=== PATIENT | male | born 1985 | race Caucasian/White ===

== ENCOUNTER 2018-01-02 08:09 | Emergency (ER) | payer OTHER, SELFPAY ==
[2018-01-02 08:20] VITALS: BP 154/69; PULSE 90; RESP 16; TEMP 36.8; O2SAT 98
--- NOTE | 2018-01-02 08:27 | DI.RAD.S_ITS ---
PROCEDURE: XR KNEE LT 3V INDICATIONS: L knee injury TECHNIQUE: 3 views of the knee were acquired. COMPARISON: None. FINDINGS: Bones: No fractures or dislocations. No suspicious bony lesions. Soft tissues: No joint effusion. No suspicious soft tissue calcifications. IMPRESSION: No acute fracture. No osseous lesion. If clinical suspicion and/or symptoms persist, further assessment with repeat plainfilms, or advanced imaging (e.g., CT, MRI, or bone scan) may be helpful for further assessment. Dictated by: Charlotte Trevino M.D. on 01/02/2018 at 8:51 Approved by: Charlotte Trevino M.D. on 01/02/2018 at 8:51
--- NOTE | 2018-01-02 08:38 | ED_ITS ---
HPI - Extremity Injury (Lower) General Chief Complaint: Extremity Injury, Lower Stated Complaint: CANT PUT PRESSURE ON LEFT KNEE Time Seen by Provider: 01/02/18 08:14 Source: patient Mode of arrival: ambulatory Limitations: no limitations History of Present Illness HPI Narrative: 32-year-old otherwise healthy male presents with ongoing left knee pain for quite some time. He denies any specific injury but states that with certain types of workout he developed sharp and stabbing pain in his left lateral knee that makes it hard to ambulate. He states on occasion he has clicking and popping. He denies any specific or direct trauma. She denies any effusions, redness, warmth or fever. His pain is worse with ambulation and improves with rest MD complaint: knee injury Onset (ago): year(s) Place: home Severity: mild Relieving factors: rest Exacerbating factors: weight bearing and movement Associated symptoms: snap/pop sensation Other symptoms: none Related Data Home Medications Medication Instructions Recorded Confirmed No Known Home Medications 01/02/18 01/02/18 Allergies Allergy/AdvReac Type Severity Reaction Status Date / Time No Known Drug Allergies Allergy Verified 01/02/18 08:24 Review of Systems Review of Systems All systems reviewed & are unremarkable except as noted in HPI and below Constitutional Denies chills, Denies fever(s), Denies lethargy and Denies weakness Eyes Denies change in vision, Denies eye discharge, Denies irritation and Denies loss of vision ENT Ears, Nose, Mouth, and Throat: Denies change in voice, Denies neck pain and Denies sore throat Cardiovascular Denies chest pain, Denies irregular heart rhythm, Denies lightheadedness, Denies palpitations, Denies dyspnea, Denies dyspnea on exertion and Denies orthopnea Respiratory Denies cough, Denies dyspnea, Denies dyspnea on exertion and Denies wheezing Gastrointestinal Gastrointestinal: Denies abdominal pain, Denies change in bowel habits, Denies diarrhea, Denies nausea and Denies vomiting Genitourinary Denies hematuria, Denies flank pain, Denies urinary incontinence and Denies urinary urgency Musculoskeletal Reports limited range of motion and Denies neck pain Integumentary/Breasts Denies pruritus, Denies erythema, Denies rash and Denies wounds Neurologic Denies confusion, Denies loss of vision and Denies weakness Psychiatric Denies anxiety, Denies confusion, Denies depression, Denies homicidal ideation and Denies suicidal ideation Endocrine Denies palpitations Hematologic/Lymphatic Denies easy bruising Allergic/Immunologic Denies wheezing PFSH Surgical History H/O hernia repair (Acute) Social History Smoking Status: Never smoker Exam Narrative Exam Narrative: GEN: AOx3 and in mild distress EYES: Pupils are equal, round, and reactive to light and accommodation. Extraoccular muscles are intact bilaterally. There is no subconjunctival hemorrhage or exudate. CHEST: Lungs are clear to auscultation bilaterally and free of wheezes, rales, or rhonchi. Heart rate is regular rhythm, there are no murmurs, clicks, rubs, or gallops. There is no chest wall tenderness. ABD: Abdomen is soft and nontender. There is no guarding or rebound. Bowel sounds are normal in all 4 quadrants. There is no mass or organomegaly. EXT: No joint line tenderness, effusion, erythema, warmth. Mild lateral pain with Rich's test on left knee. No ligamentous instability SKIN: Warm, pink, and dry. No erythema or rash Initial Vital Signs Initial Vital Signs: Vital Signs Temperature 98.3 F 01/02/18 08:20 Pulse Rate 90 01/02/18 08:20 Respiratory Rate 16 01/02/18 08:20 Blood Pressure 154/69 H 01/02/18 08:20 Pulse Oximetry 98 01/02/18 08:20 Course Orders Ordered: ED Orders 01/02/18 08:27 XR knee LT 3V Stat Vital Signs - 8 hr 01/02/18 08:20 Temperature 98.3 F Pulse Rate 90 Respiratory Rate 16 Blood Pressure 154/69 H Pulse Oximetry 98 MDM - Extremity Injury (Lower) Differential Diagnosis Likely ankle sprain and strain, acute internal derangement of knee and fracture of femur Medical Records Attestation: I reviewed the patient's medical records. Lab Data Attestation: I reviewed the patient's lab results. Imaging Data Knee Xray: My impression: PROCEDURE: XR KNEE LT 3V INDICATIONS: L knee injury TECHNIQUE: 3 views of the knee were acquired. COMPARISON: None. FINDINGS: Bones: No fractures or dislocations. No suspicious bony lesions. Soft tissues: No joint effusion. No suspicious soft tissue calcifications. IMPRESSION: No acute fracture. No osseous lesion. If clinical suspicion and/or symptoms persist, further assessment with repeat plainfilms, or advanced imaging (e.g., CT, MRI, or bone scan) may be helpful for further assessment. Dictated by: Charlotte Trevino M.D. on 01/02/2018 at 8:51 Approved by: Charlotte Trevino M.D. on 01/02/2018 at 8:51 Discharge Plan Departure Patient Disposition: Home, Self-Care Clinical Impression: Knee pain, left Instructions: DI for Knee Pain Activity Restrictions/Additional Instructions: *You have been diagnosed with [ acute on chronic left knee pain, possible meniscal injury ] *What to do: *Take medications as directed, such as Motrin or Tylenol *Follow up with your primary care provider in 2-3 days, call for an appointment. Let them know you were seen in the Emergency Department and that we ask that you be seen in follow up *Return to ER if you should have any new, worsening or concerning symptoms , such as [ ] Prescriptions: No Action No Known Home Medications RF: 0 Referrals: Lori Parr MD [Physician] -
[2018-01-02 09:38] VITALS: BP 143/63; PULSE 89; RESP 16; O2SAT 99
== END 2018-01-02 09:39 | disposition home or self-care (01) ==
PROVIDERS: Emergency Provider Emergency Medicine
DX: M25.562 Pain in left knee (principal)
CPT/HCPCS: 73562; 99282; 99283

== ENCOUNTER → 2019-06-22 10:00 | Outpatient (CLI) | payer OTHER, SELFPAY ==
--- NOTE | 2019-06-22 | DI.RAD.S_ITS ---
PROCEDURE: FL SHOULDER INJECTION MR/CT RT INDICATIONS: PAIN IN RIGHT SHOULDER TECHNIQUE: The indications, alternatives, benefits, risks, and complications of the procedure were explained to the patient. Written informed consent was obtained and placed in the chart. The shoulder was examined fluoroscopically and a site for needle placement chosen for entry into the glenohumeral joint from an anterior approach. The skin was prepped and draped in a sterile fashion, and 1% lidocaine infiltrated from skin down to joint capsule. A spinal needle was inserted into the glenohumeral joint, and a small amount of iodinated contrast media injected to confirm intra-articular placement of the needle tip. This was followed by approximately 12 mL dilute solution of a gadolinium containing MR contrast agent. The needle was removed and a dressing was applied. The patient was given postprocedural instructions and sent to the MR suite for MR imaging. FINDINGS: A single fluoroscopic spot image demonstrates intra-articular location of injected iodinated contrast. IMPRESSION: Successful fluoroscopically guided administration of dilute Gadolinium solution into the shoulder joint for MR arthrogram. Dictated by: Dick Lombardo M.D. on 06/22/2019 at 12:48 Approved by: Dick Lombardo M.D. on 06/22/2019 at 12:48
--- NOTE | 2019-06-22 | DI.MRI.S_ITS ---
PROCEDURE: MR SHOULDER RT W CON INDICATIONS: PAIN IN RIGHT SHOULDER TECHNIQUE: After the administration of 12 mL of dilute intra-articular Gadolinium contrast, oblique coronal T1 and T2 spin echo with fat saturation, oblique sagittal T1 spin echo with and without fat saturation, oblique sagittal T2 fast spin echo with fat saturation, axial T1 spin echo with fat saturation through the shoulder. COMPARISON: None. FINDINGS: Image quality: Diagnostic. Rotator cuff: No full-thickness or high-grade partial-thickness tear the rotator cuff is identified. There is mild increased signal involving the distal supraspinatus and infraspinatus tendons without significant tearing. The subscapularis and teres minor tendons appear to be intact. There is no significant atrophy of the rotator cuff muscles. Bones and bursae: There is prominent marrow edema identified along the posterosuperior aspect of the humeral head with associated microtrabecular fractures and flattening of the overlying cortex, compatible with a Hill-Sachs deformity. The corresponding anteroinferior margin of the glenoid is intact without evidence to suggest a bony Bankart. There is no dislocation. No suspicious osseous lesions are present. There is adequate distention of the glenohumeral joint with the injected contrast. No loose intra-articular joint bodies are evident. None of the injected contrast extends into the subacromial subdeltoid bursa to suggest a nonvisualized full-thickness tear of the rotator cuff. A small amount of fluid is contained within the bursa. No significant degenerative changes of the glenohumeral joint are present. There are moderate degenerative changes of the acromioclavicular joint with slight downsloping of the lateral acromion. Capsule and soft tissues: There is a small anteroinferior labral tear identified at this not appear to strip the anterior limb of the periosteum. This tear extends from approximately the 9 o'clock position to the 6 o'clock position. Heterogeneity along the superior labrum is also present without discrete labral tear evident. The long head of the biceps tendon is normally positioned within the bicipital groove. There is thickening and increased signal involving the intra-articular portion of this tendon. The superior, middle, and inferior glenohumeral ligaments are intact. IMPRESSION: 1. Hill-Sachs deformity of the humeral head is suggestive of a sustained anterior shoulder dislocation. No corresponding bony Bankart. 2. Small anteroinferior labral tear without definitive periosteal stripping. Overall, these findings are most suggestive of a soft tissue Bankart. 3. Moderate tendinopathy involving the intra-articular portion of the biceps tendon with possible intrasubstance partial-thickness tearing. 4. Mild supraspinatus and infraspinatus tendinopathy without significant tearing. 5. Moderate degenerative changes of the acromioclavicular joint with mild associated lateral acromial downsloping. Please correlate clinically to exclude subacromial impingement. Dictated by: Kishor Taylor M.D. on 06/22/2019 at 14:14 Approved by: Kishor Taylor M.D. on 06/22/2019 at 14:21
== END ==
PROVIDERS: Visit Provider Family Medicine
DX: M25.511 Pain in right shoulder (principal); S43.491A Other sprain of right shoulder joint, initial encounter; M75.91 Shoulder lesion, unspecified, right shoulder
CPT/HCPCS: 23350; 73222; 77002

== ENCOUNTER 2020-04-03 14:44 | Emergency (ER) | payer OTHER, SELFPAY ==
[2020-04-03 15:18] VITALS: BP 125/78; PULSE 77; RESP 16; TEMP 36.3; O2SAT 97; BMI 32.8
--- NOTE | 2020-04-03 17:14 | ED_ITS ---
HPI - General Adult General Chief complaint: Dental/Oral Stated complaint: JAW PAIN WHEN CHEWING Time Seen by Provider: 04/03/20 15:32 Source: patient Mode of arrival: Ambulatory Limitations: no limitations History of Present Illness HPI narrative: Patient is a 34-year-old male here for evaluation of right-sided jaw pain. He states this has been going on for the past couple days. Does cause him discomfort when he opens his jaw. 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 The symptoms on the right today feel similar to that. Has not tried anything for symptoms prior to arrival. Related Data Home Medications Medication Instructions Recorded Confirmed No Known Home Medications 01/02/18 01/02/18 Allergies Allergy/AdvReac Type Severity Reaction Status Date / Time No Known Drug Allergies Allergy Verified 01/02/18 08:24 Review of Systems Constitutional Constitutional: Denies fever(s) ENT Ears, Nose, Mouth, and Throat: Denies sore throat and Denies throat swelling Comments: Right-sided jaw pain Cardiovascular Cardiovascular: Denies chest pain Integumentary/Breasts Skin/Breast: Denies rash Neurologic Neurologic: Denies behavioral changes Psychiatric Psychiatric: Denies behavioral changes Hematologic/Lymphatic Hematologic/Lymphatic: Denies easy bleeding and Denies easy bruising Allergic/Immunologic Allergic/Immunologic: Denies throat swelling Patient History Medical History Healthy adult (Acute) Surgical History H/O hernia repair (Acute) Social History Smoking Status: Never smoker Smoking Status: Never smoker alcohol intake frequency: a few times a week Substance Use Type: does not use Exam Initial Vital Signs Initial Vital Signs: Vital Signs Temperature 97.3 F L 04/03/20 15:18 Pulse Rate 77 04/03/20 15:18 Respiratory Rate 16 04/03/20 15:18 Blood Pressure 125/78 04/03/20 15:18 Pulse Oximetry 97 04/03/20 15:18 Const General: cooperative and comfortable Limitations: mental status not altered HENMT Head: normal to inspection and normocephalic Ears: TM's normal bilaterally Nose: external nose normal Face and sinus: face symmetric and tenderness (Right-sided TMJ) Mouth: oral mucosae normal, trismus and restricted motion Throat: posterior oropharynx normal Neck Lymphatic: No lymphadenopathy Skin Lesions: no lesions Rashes: no rashes Neuro General: patient alert and patient awake Extrem General: normal to inspection and capillary refill normal Psych Appearance: grossly normal and well kempt Course Vital Signs Vital signs: Vital Signs - 8 hr 04/03/20 15:18 04/03/20 17:47 Temperature 97.3 F L Pulse Rate 77 72 Respiratory Rate 16 14 Blood Pressure 125/78 122/72 Pulse Oximetry 97 99 Medical Decision Making MDM Narrative Medical decision making narrative: Patient specifically has tenderness over the right TMJ which is causing him discomfort and some trismus. Low suspicion for dislocation. He has no lymphadenopathy. His right tympanic membranes unremarkable. Low suspicion for parotid infection. Low suspicion for dental infection. Informed him that he should contact his medical department/dental department on the [facility] to discuss potentially getting him a mouth guard. He expressed understanding and agreement. Discharge Plan Departure Patient Disposition: Home Clinical Impression: TMJ arthralgia Qualifiers: Laterality: right Qualified Code(s): M26.621 - Arthralgia of right temporomandibular joint Discharge Date/Time: 04/03/20 17:48 Instructions: TMJ Syndrome (Alternative Therapy), DI for Temporomandibular Disorder Activity Restrictions/Additional Instructions: You can take anti-inflammatories for your pain. You can also consider using a mouth guard at night when you sleep. I do recommend you talk with your medical department and also the dental department as they could potentially help you further. Return to the emergency department for any new or worsening symptoms Prescriptions: No Action No Known Home Medications RF: 0
--- NOTE | 2020-04-03 17:14 | PC.NURSE ---
patient reports right sided jaw pain. states he has had prior Dx for left jaw pain. Reports significant life stressors, seperation from partner. reports this pain is effecting his sleep as he continually awakes with severe jaw pain.
[2020-04-03 17:47] VITALS: BP 122/72; PULSE 72; RESP 14; O2SAT 99
== END 2020-04-03 17:48 | disposition home or self-care (01) ==
PROVIDERS: Emergency Provider Emergency Medicine
DX: M26.621 Arthralgia of right temporomandibular joint (principal)
CPT/HCPCS: 99281

== ENCOUNTER 2021-06-20 12:46 | Emergency (ER) | payer OTHER, SELFPAY ==
[2021-06-20 12:50] VITALS: BP 153/93; PULSE 84; RESP 18; TEMP 36.7; O2SAT 95; BMI 212.3
--- NOTE | 2021-06-20 13:15 | ED_ITS ---
HPI - Dizziness <DOLORES Nieves - Last Filed: 06/20/21 17:52> General Chief Complaint: Dizziness Stated Complaint: DIZZY FALL NOT FEELING RIGHT RT EAR PAIN Time Seen by Provider: 06/20/21 13:15 Source: patient Mode of arrival: Ambulatory History of Present Illness HPI Narrative: 35-year-old male presents to the emergency department complaining of dizziness which started last night and right ear pain. Patient states he had a cold last weekend and was better but he has had a headache for the last couple days. Patient denies any cough, shortness of breath, chest pain, sore throat, difficulty breathing, history of any medical problems, syncope, or injury. Patient denies any history of infections. Patient has a history of hypertension and takes propanolol and hydrochlorothiazide. [place] and was unable to get a primary care appointment soon. Patient denies any trauma. Patient is COVID vaccinated x2. Related Data Home Medications Medication Instructions Recorded Confirmed hydrochlorothiazide 25 mg tablet 25 mg PO BEDTIME PRN 06/20/21 06/20/21 propranolol 40 mg tablet 40 mg PO DAILY 06/20/21 06/20/21 sertraline 100 mg tablet 100 mg PO DAILY 06/20/21 06/20/21 sertraline 50 mg tablet 50 mg PO DAILY 06/20/21 06/20/21 Allergies Allergy/AdvReac Type Severity Reaction Status Date / Time No Known Drug Allergies Allergy Verified 01/02/18 08:24 Review of Systems <DOLORES Nieves - Last Filed: 06/20/21 17:52> Review of Systems Narrative: General: denies fever, chills, malaise, sweats, fatigue Head/Neck: denies headache, neck pain, dizziness Eyes: denies visual changes, eye pain Cardio: denies chest pain, palpitations, edema Respiratory: denies dyspnea, cough, orthopnea GI: denies abdominal pain, nausea, vomiting, or diarrhea : denies dysuria, hematuria, urinary retention, frequency or incontinence MSK: denies joint pain, muscle weakness Skin: denies rash, itching, skin lesions or other Neuro: denies numbness, tingling Patient History <DOLORES Nieves - Last Filed: 06/20/21 17:52> Medical History (Updated 06/20/21 @ 14:14 by DOLORES Nieves) Healthy adult Surgical History H/O hernia repair Social History Smoking Status: Never smoker Smoking Status: Never smoker alcohol intake frequency: a few times a week Substance Use Type: does not use Exam <DOLORES Nieves - Last Filed: 06/20/21 17:52> Narrative Exam Narrative: Independently reviewed vitals signs and nursing notes. General: Awake, alert, well-nourished and developed, nontoxic, no cardiorespiratory distress Head/Neck: Atraumatic, neck full range of motion, trachea midline, no JVD no anterior cervical lymphadenopathy. Supple, nontender, no meningeal signs. Eyes: Pupils equal round and reactive, EOMI, conjunctiva normal, no scleral icterus or injections Nose: nares patent, + rhinorrhea, without purulent drainage or septal hematoma. Mouth/Throat: uvula midline, moist mucus membranes, posterior pharynx erythematous with left tonsillar adenopathy, no oral lesions, airway patent Cardio: Regular rate and rhythm, no peripheral edema Respiratory: respirations unlabored without wheezing, stridor, or rales. No retractions. GI: Abdomen soft, nontender, nondistended, no hepato-spenomegaly MSK: Moves all extremities, neurovascularly intact, no flank tenderness Skin: Normal capillary refill, no rash Neuro: Normal speech and cognition, normal gait, A&O x3 Initial Vital Signs Initial Vital Signs: Vital Signs Temperature 98.1 F 06/20/21 12:50 Pulse Rate 84 06/20/21 12:50 Respiratory Rate 18 06/20/21 12:50 Blood Pressure 153/93 H 06/20/21 12:50 Pulse Oximetry 95 06/20/21 12:50 <Esteban Mejía DO - Last Filed: 06/20/21 18:00> Initial Vital Signs Initial Vital Signs: Vital Signs Temperature 98.1 F 06/20/21 12:50 Pulse Rate 84 06/20/21 12:50 Respiratory Rate 18 06/20/21 12:50 Blood Pressure 153/93 H 06/20/21 12:50 Pulse Oximetry 95 06/20/21 12:50 Course <DOLORES Nieves - Last Filed: 06/20/21 17:52> Orders Ordered: ED Orders 06/20/21 13:31 COVID19 -Nasal swab/Pre-Proc Stat Vital Signs Vital signs: Vital Signs - 8 hr 06/20/21 12:50 06/20/21 14:22 Temperature 98.1 F Pulse Rate 84 78 Respiratory Rate 18 Blood Pressure 153/93 H Pulse Oximetry 95 97 <Esteban Mejía DO - Last Filed: 06/20/21 18:00> Orders Ordered: ED Orders 06/20/21 13:31 COVID19 -Nasal swab/Pre-Proc Stat Vital Signs Vital signs: Vital Signs - 8 hr 06/20/21 12:50 06/20/21 14:22 Temperature 98.1 F Pulse Rate 84 78 Respiratory Rate 18 Blood Pressure 153/93 H Pulse Oximetry 95 97 MDM - Dizziness <DOLORES Nieves - Last Filed: 06/20/21 17:52> Lab Data Labs: Lab Results 06/20/21 Range/Units 13:31 SARS-CoV-2 (PCR) Positive H (Negative) MDM Narrative Medical decision making narrative: This is a 35-year-old male who presents to the emergency department with concern of right ear pain, dizziness, and headache which started yesterday. He tested COVID (+) on day [2] of symptoms without hypoxia, respiratory distress, dehydration, or focal exam to suggest secondary bacterial infection. He has a right middle ear effusion, mild middle ear effusion on the left without eryt veronica, purulence, TM was pearly ambrosio with positive light reflex bilaterally. Posterior pharynx with erythema and left tonsillar adenopathy without exudate. Discussed CDC guidelines for quarantine, mask wearing, physical distancing, and infection prevention measures such as frequent handwashing. Discussed supportive treatments: Tylenol/Motrin as needed for pain/fever. OTC decongestant medications and/or antihistamines for symptomatic relief. Maintain adequate fluid intake. Follow-up with PCP as directed. Return to clinic/ER instructions discussed for new, not improving, or worsening symptoms. All questions answered. <DO Rodrick Bowens Last Filed: 06/20/21 18:00> Lab Data Labs: Lab Results 06/20/21 Range/Units 13:31 SARS-CoV-2 (PCR) Positive H (Negative) Discharge Plan Departure Patient Disposition: Home Clinical Impression: COVID-19, Dizziness, Acute effusion of both middle ears Instructions: Eustachian Tube Dysfunction, DI for Dizziness-Nonvertigo, DI for COVID-19 (Suspected or Confirmed ) Activity Restrictions/Additional Instructions: *You have been diagnosed with COVID-19. Please quarantine and do not go to work for the next 4 days since her symptoms started yesterday. According to the CDC you are to quarantine for 5 days and if you do not have a fever you may return to work afterwards in a mask. If your symptoms do not improve, or if you have any worsening of your symptoms please return to the emergency department for another evaluation. For your symptoms please use [id number] medications like Sudafed decongestant, Benadryl, Robitussin or Mucinex, ibuprofen or Tylenol as needed for fever. Youcan use Flonase, meclizine/Dramamine, or Sudafed decongestant as needed for your dizziness and ear pain. Thank you for trusting us with your care, I hope that you feel better soon. *What to do: *Please continue to take your regular medications as directed. [ ] New medication prescriptions sent to your pharmacy: [ ] [ ] New medication written as a paper prescription [x] No new medications given *Please follow up with your primary care provider in 2-3 days, call for an appointment. Let them know you were seen in the Emergency Department and that we ask that you be seen in follow up. We will electronically transmit a record of today's note if your PCP is in our system *If you do not have a primary care provider please contact the [facility] Resource line at [phone]. They will ask some questions about your medical history and help get you set up with a doctor in the community. *Return to Emergency Department if you should have any new, worsening or concerning symptoms, such as [fever greater than 101F, chills, worsening pain, persistent vomiting or other bothersome symptoms] Prescriptions: No Action sertraline 100 mg tablet 100 mg PO DAILY 0RF propranolol 40 mg tablet 40 mg PO DAILY 0RF Label Comments: TAKE 1 TABLET BY MOUTH ONE HOUR PRIOR TO ANXIETY-PRODUCING EVENT hydrochlorothiazide 25 mg Tablet 25 mg PO BEDTIME PRN (Reason: Anxiety) 0RF sertraline 50 mg tablet 50 mg PO DAILY 0RF Label Comments: TAKE 1 TABLET BY MOUTH DAILY Stand Alone Forms: Work Release Note <Esteban Mejía, DO - Last Filed: 06/20/21 18:00> Cosign ED Attending Cosignature Attestation: Dr Mejía Co-Sign Statement: I was available for consultation during this patient's emergency department visit. This chart is signed by myself for administrative purposes only. I did not have direct contact with this patient during this visit. They were seen independently by the APC.
[2021-06-20 13:49] LABS: COVID19 -Nasal RAPID POSITIVE (Negative)
[2021-06-20 14:22] VITALS: PULSE 78; O2SAT 97
== END 2021-06-20 14:23 | disposition home or self-care (01) ==
PROVIDERS: Emergency Provider Nurse Practitioner Critical Care Medicine
DX: U07.1 COVID-19 (principal); R42 Dizziness and giddiness; H74.8X3 Other specified disorders of middle ear and mastoid, bilateral
CPT/HCPCS: 87635; 99281; C9803